=== PATIENT | female | born 1950 | race Caucasian/White ===

== ENCOUNTER → 2019-09-25 | Outpatient (CLI) | payer MEDICARE | END | disposition home or self-care (01) | LOC: PLD 13:11 → LAB SHORT 13:11 | DX: D36.10 Benign neoplasm of peripheral nerves and autonomic nervous system, unspecified (principal) | CPT/HCPCS: 88305 ==

== ENCOUNTER → 2023-08-31 | Outpatient (CLI) | payer MEDICARE | LOC: LAB SHORT 07:38 → LAB 07:38 | DX: L91.0 Hypertrophic scar (principal) | CPT/HCPCS: 88305 ==

== ENCOUNTER → 2024-10-20 | Outpatient (CLI) | payer MEDICARE | LOC: LAB 14:34 → LAB SHORT 14:34 | DX: N39.0 Urinary tract infection, site not specified (principal) | CPT/HCPCS: 87086 ==